=== PATIENT | male | born 1960 | race Caucasian/White ===

== ENCOUNTER → 2016-03-10 | Outpatient (CLI) | payer OTHER ==
--- NOTE | 2016-03-12 07:43 | MR ---
EXAMINATION TYPE: MR knee RT wo con DATE OF EXAM: 03/10/2016 8:21 PM COMPARISON: NONE HISTORY: Right Knee pain for 4 years, swelling, and locking per patient. Pain per order. TECHNIQUE: Multiplanar, multisequence images of the knee is performed without IV contrast. FINDINGS: MEDIAL MENISCUS: Anterior horn is intact without tear. There is trying of the shaped increased signal posterior horn of medial meniscus, does not extend to articular surface, findings consistent with in trasubstance tear. LATERAL MENISCUS: There is truncated appearance to posterior horn of lateral meniscus with increased signal extending to articular surface, findings are consistent with full-thickness meniscal tear. Christin bular increased signal is present in the anterior horn of lateral meniscus with extension to the supe rior surface consistent with full-thickness tear. CRUCIATE LIGAMENTS: The anterior and posterior cruciate ligaments are intact. Increased signal anteri or cruciate ligament is present consistent with mucoid degeneration. COLLATERAL LIGAMENTS: The medial collateral ligament and lateral collateral ligament complex are inta ct. Slightly lobulated contour to lateral collateral ligament proper seen on coronal images. EXTENSOR MECHANISM: Visualized quadriceps and patellar tendons are intact. EFFUSION: There is large suprapatellar joint effusion. POPLITEAL CYST: There is moderate-sized septated popliteal/spivey cyst measuring 6.5 cm on long axis o n sagittal image 10. Some adjacent fluid suggesting possible leak is noted inferiorly. TRICOMPARTMENT SPACES: There is mild to moderate tricompartment joint space loss and spurring most pr onounced medial tibiofemoral compartment. CARTILAGE: Slight thinning of articular cartilage along posterior patellar pole is seen. No full-thic kness cartilaginous loss is present. Most prominent cartilaginous loss is medial tibiofemoral compart ment. No full-thickness loss is seen. BONE MARROW SIGNAL: Some heterogeneity of bone marrow signal intensity is present. No suspicious foca l edema is seen. OTHER: No additional significant abnormality is appreciated. IMPRESSION: 1. Full-thickness tears anterior and posterior horns of lateral meniscus. 2. Intrasubstance tear posterior horn of medial meniscus. 3. Large suprapatellar joint effusion. 4. Moderate-sized popliteal cyst. 5. Mucoid degeneration ACL. 6. Mild to moderate osteoarthritic changes in the knee as detailed above.
== END | disposition home or self-care (01) ==
LOC: RADMRIMAIN 08:51
PROVIDERS: ATTEND Family Medicine
DX: S83.281A Other tear of lateral meniscus, current injury, right knee, initial encounter (principal); S83.241A Other tear of medial meniscus, current injury, right knee, initial encounter; M17.11 Unilateral primary osteoarthritis, right knee